=== PATIENT | male | born 1980 | race Caucasian/White ===

== ENCOUNTER 2017-07-16 10:03 | Emergency (ER) | payer OTHER ==
[2017-07-16 10:14] VITALS: RESP 18
[2017-07-16] MEDS ORDERED: NS 1,000 ML IV ONE (10:14)
[2017-07-16] MEDS ORDERED: MECLIZINE HCL 25 MG TAB PO ONE (10:15)
[2017-07-16] MEDS ORDERED: ONDANSETRON 4 MG/2 ML VIAL ONE (10:18)
--- NOTE | 2017-07-16 10:19 | EDPHY ---
HPI/HX/ROS/PE/MDM Narrative: CHIEF COMPLAINT: Dizziness, one episode of vomiting HPI: The patient is a 37 y/o male arriving via EMS complaining of acute onset dizziness this morning around 08:00, 2 hours ago. He arrived here from [place] one week ago for work. He felt normal upon waking this morning and ate breakfast at the hotel without issue. As he began walking to work he developed sudden "spinning" dizziness. He had difficulty walking due to the dizziness, but made it to work where he had one episode of vomiting. EMS administered 4mg IV Zofran en route for symptoms and his prehospital BGL was 156. He denies recent head injury or recent illness apart from some mild nasal congestion a few days ago. No weakness, paresthesias, or fever. He denies any pertinent medical history or relevant family history. REVIEW OF SYSTEMS: Aside from elements discussed in the HPI, a comprehensive 10-point review of systems was reviewed and is negative. PMH: Denies SOCIAL HISTORY: Visiting from [place]. Employed. PHYSICAL EXAM: General:Patient is alert, eyes closed, in no acute distress. ENT:Eyes are normal to inspection apart from mild horizontal nystagmus. ENT inspection normal. Neck: Normal inspection. Full range of motion. Respiratory:No respiratory distress. Breath sounds normal bilaterally. Cardiovascular: Regular rate and rhythm. Strong peripheral pulses. Normal cap refill. Abdomen:The abdomen is nontender to palpation. There are no peritoneal signs. Back: Normal to inspection. No tenderness to palpation. Skin: Mildly pale. No rash. Warm and dry. Extremities: Normal appearance. Full range of motion. Neuro: Oriented x3. Normal motor function. Normal sensory function. Normal [id number] and [id number] bilaterally. ED Course: This is a healthy 37 y/o male who presents with a 2-hour history of acute-onset spinning dizziness and one episode of vomiting. He had some recent congestion shortly after flying here from [place] one week ago that preceded symptom onset today. No associated trauma. He has mild horizontal nystagmus and is slightly pale. His neuro exam is normal. His presentation is most likely benign positional vertigo and I do not see an indication for imaging. Plan for basic labs and symptomatic management. 50mg PO Meclizine, 4mg IV Zofran, and 1L IV NS administered. Reassessed patient. He is feeling improved and can walk unassisted, though he does not feel completely back to normal. His cerebellar exam remains normal. He now tells me he's had left-sided neck pain for the last week and a headache this morning. I recommended head and neck CTA to rule out vertebral dissection or other etiology, which he agrees to. CTAs are negative. I discussed results with the patient. He will be discharged home with instructions for vertigo and Meclizine use. Return precautions discussed. He is comfortable with this plan. MDM: This is a young healthy male who presents with sudden onset of vertigo. Given history of unilateral neck pain and mild headache, we performed a CTA which is negative. I see no signs of vertebral or carotid a. dissection, CVA, mass or ruptured TM. Patient advised to follow-up with ENT. - Data Points Imaging Results: Imaging Impressions Head CT 07/16/17 11:40 Impression: No acute intracranial findings. If symptoms persist and clinical suspicion warrants, consider MRI. Findings discussed with Pk Walker MD 07/16/2017 at 1324. Head CTA 07/16/17 11:40 Impression: Normal CT angiogram of the head and neck. Stenoses are calculated using [place] Symptomatic Carotid Endarterectomy Trial (NASCET) criteria. Findings discussed with Pk Walker MD 07/16/2017 at 1324. Neck CTA 07/16/17 11:40 Impression: Normal CT angiogram of the head and neck. Stenoses are calculated using [place] Symptomatic Carotid Endarterectomy Trial (NASCET) criteria. Findings discussed with Pk Walker MD 07/16/2017 at 1324. Imaging: Discussed imaging studies w/ dye line operator Radiologist, I viewed and interpreted images myself Laboratory Results: Laboratory Results 07/16/17 10:00 07/16/17 10:00 07/16/17 07/16/17 10:00 10:00 WBC 6.48 10^3/uL 10^3/uL (3.80-9.50) RBC 5.06 10^6/uL 10^6/uL (4.40-6.38) Hgb 15.4 g/dL g/dL (13.7-17.5) Hct 44.2 % % (40.0-51.0) MCV 87.4 fL fL (81.5-99.8) MCH 30.4 pg pg (27.9-34.1) MCHC 34.8 g/dL g/dL (32.4-36.7) RDW 11.4 % L % (11.5-15.2) Plt Count 184 10^3/uL 10^3/uL (150-400) MPV 11.1 fL fL (8.7-11.7) Neut % (Auto) 41.1 % % (39.3-74.2) Lymph % (Auto) 42.0 % % (15.0-45.0) Jenkins % (Auto) 10.0 % % (4.5-13.0) Eos % (Auto) 3.4 % % (0.6-7.6) Baso % (Auto) 1.5 % % (0.3-1.7) Nucleat RBC Rel Count 0.0 % % (0.0-0.2) Absolute Neuts (auto) 2.66 10^3/uL 10^3/uL (1.70-6.50) Absolute Lymphs (auto) 2.72 10^3/uL 10^3/uL (1.00-3.00) Absolute Monos (auto) 0.65 10^3/uL 10^3/uL (0.30-0.80) Absolute Eos (auto) 0.22 10^3/uL 10^3/uL (0.03-0.40) Absolute Basos (auto) 0.10 10^3/uL 10^3/uL (0.02-0.10) Absolute Nucleated RBC 0.00 10^3/uL 10^3/uL (0-0.01) Immature Gran % 2.0 % H % (0.0-1.1) Immature Gran # 0.13 10^3/uL H 10^3/uL (0.00-0.10) Sodium 141 mEq/L mEq/L (134-144) Potassium 4.2 mEq/L mEq/L (3.5-5.2) Chloride 101 mEq/L mEq/L (97-110) Carbon Dioxide 26 mEq/l mEq/l (22-31) Anion Gap 14 mEq/L mEq/L (8-16) BUN 12 mg/dL mg/dL (7-23) Creatinine 0.9 mg/dL mg/dL (0.7-1.3) Estimated GFR > 60 Glucose 130 mg/dL H mg/dL (70-100) Calcium 9.8 mg/dL mg/dL (8.5-10.4) Troponin I < 0.012 ng/mL ng/mL (0.000-0.034) Medications Given: Discontinued Medications Sodium Chloride (Ns) 1,000 mls @ 0 mls/hr IV EDNOW ONE; Wide Open PRN Reason: Protocol Stop: 07/16/17 10:15 Last Admin: 07/16/17 10:22 Dose: 1,000 mls Meclizine HCl (Meclizine Hcl) 50 mg PO EDNOW ONE Stop: 07/16/17 10:16 Last Admin: 07/16/17 10:21 Dose: 50 mg Ondansetron HCl (Zofran) 4 mg IVP EDNOW ONE Stop: 07/16/17 10:22 Last Admin: 07/16/17 10:21 Dose: 4 mg General Initial Vital Signs: Initial Vital Signs Temperature (C) 36.4 C 07/16/17 10:13 Heart Rate 47 L 07/16/17 10:13 Respiratory Rate 18 07/16/17 10:13 Blood Pressure 114/83 H 07/16/17 10:13 O2 Sat (%) 97 07/16/17 10:13 O2 Delivery Mode Room Air Allergies/Adverse Reactions: No Known Allergies Allergy (Unverified 07/16/17 10:13) Home Medications: Medication Instructions Recorded Meclizine HCl [Meclizine HCl 25 mg 50 mg PO BID PRN #14 tab 07/16/17 (RX,OTC)] Departure - Departure Disposition: Home, Routine, Self-Care Clinical Impression: Benign paroxysmal positional vertigo Condition: Good Instructions: Meclizine (By mouth), Benign Paroxysmal Positional Vertigo (ED) Additional Instructions: 1. Take Meclizine as prescribed for symptoms of vertigo. 2. Follow up with an ENT for unimproved symptoms over the next 1-2 days. You've been referred to Dr. Tobar locally. 3. Return to the ED for severe headache, weakness or numbness on one side of your body, uncontrollable vomiting, or other worsening of condition. Referrals: Pk Tobar MD [Medical Doctor] - As per Instructions Stand Alone Forms: Airline Excuse Prescriptions: Meclizine HCl [Meclizine HCl 25 mg (RX,OTC)] 50 mg PO BID PRN #14 tab PRN Reason: vertigo Report Scribed for: Pk Walker Report Scribed by: Em Salinas Date of Report: 07/16/17 Time of Report: 10:04 Physician Review and Approval Statement: Portions of this note were transcribed by an ED scribe. I personally performed the history, physical exam, and medical decision making; and confirm the accuracy of the information in the transcribed note.
[2017-07-16] MEDS ORDERED: ONDANSETRON 4 MG/2 ML VIAL IVP ONE (10:21)
[2017-07-16 10:22] LABS: PLATELET COUNT 184 10^3/uL (150-400)
[2017-07-16] MEDS ORDERED: IOPAMIDOL (ISOVUE 370) 100 ML BTL IV ONE (12:39)
[2017-07-16 14:11] VITALS: BP 137/85; PULSE 62; TEMP 97.7; O2SAT 98
== END 2017-07-16 14:09 | disposition home or self-care (01) ==
DX: H81.10 Benign paroxysmal vertigo, unspecified ear (principal); E86.9 Volume depletion, unspecified
CPT/HCPCS: 96374; J2405; Q9967